=== PATIENT | female | born 1980 | race Caucasian/White ===

== ENCOUNTER 2018-02-06 09:27 | Emergency (ER) | END 2018-02-06 11:49 | disposition home or self-care (01) ==

== ENCOUNTER 2018-07-10 19:33 | Inpatient (IN) | payer OTHER ==
[~2018-07-10] VITALS: Ht 154.9 cm; Wt 69.1 kg
[~2018-07-10 19:33] MED LIST: NITR-58 PO
[2018-07-10] MEDS ORDERED: LIDOCAINE 1% (MPF) 30 ML INJ INJ PRN (20:00)
[2018-07-10] MEDS ORDERED: MISOPROSTOL 200 MCG TAB PR PRN (20:00)
[2018-07-10] MEDS ORDERED: METHYLERGONOVINE 0.2 MG INJ IM PRN (20:00)
[2018-07-10] MEDS ORDERED: BUTORPHANOL 2 MG INJ IV PRN (20:00)
[2018-07-10] MEDS ORDERED: OXYTOCIN 30 UNITS/LR 500 ML IV PRN (20:00)
[2018-07-10] MEDS ORDERED: MINERAL OIL LIGHT 10 ML VIAL TOP PRN (20:00)
[2018-07-10] MEDS ORDERED: OXYTOCIN 30 UNITS/LR 500 ML IV SCH (20:00)
[2018-07-10] MEDS ORDERED: IBUPROFEN 600 MG TAB PO PRN (20:00)
[2018-07-10] MEDS ORDERED: CARBOPROST 250 MCG INJ IM PRN (20:00)
[2018-07-10 20:10] VITALS: Ht 154.9 cm; Wt 69.1 kg
[2018-07-10] MEDS: LACTATED RINGER'S 1,000 ML IV SCH ×2 (20:10→21:32)
--- NOTE | 2018-07-10 21:32 | PREAC ---
Date/Time of Note Date/Time of Note DATE: 07/10/18 TIME: 21:31 Anesthesia Eval and Record Evaluation Time Pre-Procedure Interview DATE: 07/10/18 TIME: 21:31 Age 37 Sex female NPO: 8 hrs Preoperative diagnosis intrauterine Planned procedure labor epidural Past Medical History Past Medical History: Includes : : (5), Para: (2) Surgery & Anesthesia Issues No known issue Meds Anticoagulation: No Beta Katlin within 24 hr: No Reason Beta Katlin not given: Pt. not on B-Katlin Active Scripts Nitrofurantoin Monohyd Macrocr* (Macrobid*) 100 Mg Capsr, 100 MG PO BID for 7 Days, CAP Prov:AIDEN MCCOY MD 02/06/18 Current Medications Lactated Ringer's 1,000 ml @ 125 mls/hr Q8H IV Last administered on 07/10/18at 20:10; Admin Dose 125 MLS/HR; Start 07/10/18 at 19:49 Butorphanol Tartrate (Stadol) 2 mg Q2H PRN IV .PAIN SCALE 6-10; Start 07/10/18 at 20:00 Lidocaine (Xylocaine 1% (Mpf)) 30 ml ONCE PRN INJ .EPISIOTOMY; Start 07/10/18 at 20:00 Oxytocin/Lactated Ringer's 500 ml @ 500 mls/hr ONCE POST IV ; Start 07/10/18 at 20:00 Oxytocin/Lactated Ringer's 500 ml @ 125 mls/hr POST IV ; Start 07/10/18 at 20:00 Ibuprofen (Motrin) 600 mg ONCE PRN PO .PAIN 1-5; Start 07/10/18 at 20:00 Oxytocin/Lactated Ringer's 500 ml @ 0 mls/hr ONCE PRN IV .VAGINAL BLEEDING; Start 07/10/18 at 20:00 Methylergonovine Maleate (Methergine) 0.2 mg ONCE PRN IM .VAGINAL BLEEDING; Start 07/10/18 at 20:00 Carboprost Tromethamine (Hemabate) 250 mcg ONCE PRN IM .VAGINAL BLEEDING; Start 07/10/18 at 20:00 Misoprostol (Cytotec) 1,000 mcg ONCE PRN TX .VAGINAL BLEEDING; Start 07/10/18 at 20:00 Mineral Oil (Muri-Lube) 10 ml ONCE PRN TOP vaginal delivery; Start 07/10/18 at 20:00; Stop 07/11/18 at 19:59 Clindamycin HCl/ Dextrose 50 ml @ 100 mls/hr Q8 IVPB ; Start 07/10/18 at 22:00 Meds reviewed: Yes Allergies Coded Allergies: Penicillins (Verified Allergy, Intermediate, 07/10/18) Allergies Reviewed: Yes Labs/Studies Labs Reviewed: Reviewed by anesthesiologist Result Diagram: 07/10/182009 Laboratory Tests 07/10/18 20:10 Blood Bank Test 07/10/18 20:10 Blood Type O POSITIVE Rh Immune Globulin Candidate NO test: N/A Pre-procedure Exam Airway: Adequate mouth opening, Adequate thyromental dist Mallampati: Mallampati II Teeth: Normal Lung: Normal Heart: Normal ASA Physical Status ASA physical status: 2 Emergency: None Planned Anesthetic Neuraxial: Epidural Planned Pain Management Epidural, Parenteral pain med Pre-operative Attestations Prior to commencing anesthesia and surgery, the patient was re-evaluated, there was verification of: *The patient's identity *The results of appropriate recent lab work and preoperative vital signs *The above evaluation not changing prior to induction *Anesthetic plan, risk benefits, alternative and complications discussed with patient/family; questions answered; patient/family understands, accepts and wishes to proceed. FELICIA JAQUEZ MD July 10, 2018 21:32
[2018-07-10] MEDS ORDERED: FENTAnyl 2MCG/ML-ROPIV 0.2% 100 ML ONE (21:44)
[2018-07-10] MEDS ORDERED: ROPIVACAINE 0.2% 100ML BAG EPI SCH (22:00)
[2018-07-10] MEDS ORDERED: ONDANSETRON 4 MG INJ IV PRN (22:00)
[2018-07-10] MEDS ORDERED: CLINDAMYCIN 900 MG/D5W (PMX) 50 ML IVPB SCH (22:00)
[2018-07-10] MEDS ORDERED: NALOXONE (0.4 MG/ML) INJ IV PRN (22:00)
[2018-07-10] MEDS ORDERED: FENTAnyl 2MCG/ML-ROPIV 0.2% 100 ML BAG EPI SCH (22:00)
[2018-07-10] MEDS ORDERED: DIPHENHYDRAMINE 50 MG INJ IV PRN (22:00)
--- NOTE | 2018-07-10 22:29 | HP ---
Date/Time of Note Date/Time of Note DATE: 07/10/18 TIME: 22:22 OB - History Hx of Present Free Text/Dictation 37y.o A3(sab) here at 38w6d c/o SROM at 1830 which was clear with uc'sq3min apart. VE 3-4780/-2 clear vag pooling GBS pos ,allergic to penicillin ,clindamycin as protocol admitted for expectant management. Chief Complaint: SROM with UC's Estimated Due Date: July 18, 2018 : 5 Para: 2 Spontaneous : 3 Therapeutic : 0 Care: Good Care Ultrasounds: Normal mid trimester US Obstetrical Complications: None Medical Complications: None Past Family/Social History * Past Medical, Surgical, Family and Obstetric Histories reviewed from chart. Blood Type: O+ Rubella: immune RPR/VDRL: Negative GBS Status: Positive HBsAG: Negative OB Admission Exam Physical Exam HEENT: WNL Heart: Rhythm Normal Lungs: Clear, Equal Abdomen: WNL Extremities: Normal Reflexes: Normal Cervical Dilatation: 3cm Effacement: 75% Station: -2 Membranes: Ruptured Amniotic Fluid: Clear Heart Rate: 120's Accelerations: Accelerations Present Decelerations: No Decelerations Varibility: Moderate Contractions on Admission: < 5 Minutes Apart Intensity: Moderate Last 72 hours Lab Results CBC & BMP 07/10/18 20:10 OB Assessment/Plan Reason for admission: rupture of membranes Other Assessment: IUP 38w6d in labor Plan: Expectant Management, Other (clindamycin clindamycin for GBS) DIMA VOGEL MD July 10, 2018 22:29
--- NOTE | 2018-07-10 22:43 | PAC ---
Date/Time of Note Date/Time of Note DATE: 07/10/18 TIME: 22:42 Post-Anesthesia Notes Post-Anesthesia Note Activity: WNL Respiratory function: WNL Cardiovascular function: WNL Mental status: Baseline Pain reasonably controlled: Yes Hydration appropriate: Yes Nausea/Vomiting absent: Yes Comments BP: 110/64 HR: 82 RR: 15 T: 98 SaO2: 99% FELICIA JAQUEZ MD July 10, 2018 22:43
--- NOTE | 2018-07-11 02:48 | LDN ---
Date/Time of Note Date/Time of Note DATE: 07/11/18 TIME: 02:46 Delivery Summary of normal male Weeks of Gestation 38w6d Placenta Delivered: Spontaneously, Intact & Complete Meconium: none Episiotomy: No Perineal laceration: 1 Laceration repair: 000ch gut Anesthesia type: Epidural Estimated blood loss: 100 Sponge & Needle done & correct: Yes All needle counts correct: Yes Any foreign bodies felt in the: No Infant Delivery Information Sex Sex: male Apgars 1 Minute: 8 5 Minute: 9 Suctioning Nose & mouth suctioned at garett: Yes Delee suction performed: Yes Umbilical Cord Umbilical cord with: 3 Vessels Cord presentations: no nuchal cord Cord Blood was obtained: Yes Mother & Baby Disposition Disposition Mom & Baby to Maternity; Good: Yes Mom transferred to: Other Baby to NICU: No () DIMA VOGEL MD July 11, 2018 02:48
[2018-07-11] MEDS: OXYTOCIN 30 UNITS/LR 500 ML IV SCH ×2 (03:28→07:41)
[2018-07-11 05:00] VITALS: BP 118/68; PULSE 88; RESP 17; RESP 18
[2018-07-11] MEDS ORDERED: METHYLERGONOVINE 0.2 MG INJ IM PRN (05:30)
[2018-07-11] MEDS ORDERED: MISOPROSTOL 200 MCG TAB PR PRN (05:30)
[2018-07-11] MEDS ORDERED: WITCH HAZEL/GLYCERIN PAD PR PRN (05:30)
[2018-07-11] MEDS ORDERED: BENZOCAINE 20% 56 ML SPRAY TOP PRN (05:30)
[2018-07-11] MEDS ORDERED: OXYTOCIN 30 UNITS/LR 500 ML IV PRN (05:30)
[2018-07-11] MEDS ORDERED: CARBOPROST 250 MCG INJ IM PRN (05:30)
[2018-07-11] MEDS ORDERED: OXYCODONE/ASPIRIN (4.88/325) TAB PO PRN ×2 (05:30)
[2018-07-11] MEDS ORDERED: ZOLPIDEM 5 MG TAB PO PRN (05:30)
[2018-07-11] MEDS: IBUPROFEN 600 MG TAB PO SCH ×4 (05:57→23:58)
--- NOTE | 2018-07-11 06:00 | TRIAGE ---
OB Triage Datetime Report Generated by CPN: 07/11/2018 05:59 Datetime: 07/11/2018 05:07 Stage of : Datetime: 07/11/2018 03:45 Stage of : Recovery Pain Assessment Pain Scale: 0 Pain Presence: None/Denies Datetime: 07/11/2018 03:30 Stage of : Recovery Pain Assessment Pain Scale: 0 Pain Presence: None/Denies Datetime: 07/11/2018 03:15 Stage of : Recovery Pain Assessment Pain Scale: 0 Pain Presence: None/Denies Datetime: 07/11/2018 03:00 Stage of : Recovery Pain Assessment Pain Scale: 0 Pain Presence: None/Denies Datetime: 07/11/2018 02:45 Stage of : Recovery Temperature Route: Oral Pain Assessment Pain Scale: 0 Pain Presence: None/Denies Datetime: 07/11/2018 00:45 Stage of : Recovery Temperature Route: Oral Pain Assessment Pain Scale: 7 Pain Presence: Constant Pain Type: Burning; Cramping Pain Location: Abdomen; Perineum Pain Goal: 2 Pain Relief Measures: Comfort Measures Datetime: 07/11/2018 00:27 Vaginal Exam Dilatation (cms): 10.0 Effacement (%): 100 Station: 0 Exam By: Suzanna Dennison RN Vaginal Bleeding: Normal Show Cervix, Consistency: Soft Cervix, Position: Anterior Presentation 'A': Cephalic Datetime: 07/10/2018 22:19 Vaginal Exam Dilatation (cms): 7.0 Effacement (%): 90 Station: -1 Exam By: Suzanna Dennison RN Vaginal Bleeding: Normal Show Cervix, Consistency: Soft Cervix, Position: Anterior Presentation 'A': Cephalic Datetime: 07/10/2018 22:09 Monitor Mode: External Monitor Mode: External US Datetime: 07/10/2018 20:35 Time of Arrival: 07/10/2018 20:35 EGA: 38.6 Arrived By: Wheelchair Arrived From: Home Chief Complaint: SROM AT 1830 UC'S Movement: Present Contractions: Regular Time Contractions Began: 07/10/2018 18:30 Contractions: 3 MIS Rupture of Membranes: Ruptured Vaginal Bleeding: Normal Show Vaginal Discharge: Present Recent Sexual Intercouse: Denies Abdominal Trauma: Not Applicable Patient Complaints: Contractions; Other Time Provider Notified: 07/10/2018 20:35 Provider Notified: DR. VOGEL Initial Plan: EFM, SVE, NITRIZINE Datetime: 07/10/2018 20:25 Stage of : OB Triage Labor Evaluation Frequency: 2-3.5 Monitor Mode: External Duration (sec)2399: 60-100 Quality: Strong Pattern: Normal: <= 5 Contractions in 10 Minutes Resting Tone [place]: Relaxed Heart Rate FHR Baseline Rate: 135 Monitor Mode: External US Variability: Moderate 6-25 bpm Accelerations: 15X15 Decelerations: None Category: Category I Datetime: 07/10/2018 19:40 Stage of : OB Triage Maternal Assessment Level of Consciousness: Fully Conscious DTR's/Clonus: DTRs 2+; No Clonus Headache: Denies Blurred Vision: No Respiratory Effort: Unlabored; Regular Rhythm; Equal Expansion Breath Sounds, Left: Clear and Equal Breath Sounds, Right: Clear and Equal Nausea/Vomiting: Denies RUQ Epigastric Pain: Denies Lower Extremities Edema: None Degree: None Upper Extremities Edema: None Degree: None Facial Edema: None Temperature Route: Oral Fall Risk Assessment History of Falling: (0) No Secondary Diagnosis: (0) No Ambulatory Aid: (0) Bedrest/Nurse Assist IV Therapy: (0) No Gait: (0) Normal/Bedrest/Immobile Mental Status: (0) Oriented to Own Ability Fall Score: 0 Fall Risk Score Definition: No Risk: No action required Pain Assessment Pain Scale: 4 Pain Presence: Intermittent Pain Type: Contraction Pain Location: Abdomen Datetime: 07/10/2018 19:30 Vaginal Exam Dilatation (cms): 3.5 Effacement (%): 80 Station: -2 Exam By: David ST Membrane Status: Ruptured Membranes Ruptured Date/Time: 07/10/2018 18:30 Membranes Rupture Method: Spontaneous Amniotic Fluid Color: Clear Amniotic Fluid Amount: Large Amniotic Fluid Odor: Normal Vaginal Bleeding: Normal Show Pool: Positive Nitrazine: Positive Cervix, Consistency: Soft Cervix, Position: Midposition
[2018-07-11 07:30] VITALS: BP 110/53; PULSE 93; RESP 18
[2018-07-11] MEDS: LANOLIN HPA 1 PKT TOP PRN (07:40)
[2018-07-11] MEDS: SENNA/DOCUSATE NA (8.6MG/50MG) TAB PO SCH ×2 (09:59→23:58)
[2018-07-11 12:00] VITALS: BP 98/57; PULSE 76; RESP 16
[2018-07-11 16:00] VITALS: BP 94/52; PULSE 75; RESP 18
[2018-07-11 19:45] VITALS: BP 110/57; PULSE 73; RESP 18
[2018-07-12 03:50] VITALS: BP 98/48; PULSE 69; RESP 18
[2018-07-12] MEDS: IBUPROFEN 600 MG TAB PO SCH ×4 (05:53→23:47)
[2018-07-12 08:20] VITALS: BP 93/55; PULSE 71; RESP 19
[2018-07-12] MEDS: SENNA/DOCUSATE NA (8.6MG/50MG) TAB PO SCH ×2 (08:23→21:56)
[2018-07-12] MEDS: LANOLIN HPA 1 PKT TOP PRN (08:23)
[2018-07-12 15:39] VITALS: BP 105/65; PULSE 80; RESP 18
[2018-07-12 20:30] VITALS: BP 105/67; PULSE 77; RESP 17
--- NOTE | 2018-07-12 22:10 | PN ---
Date/Time of Note Date/Time of Note DATE: 07/12/18 TIME: 22:06 OB Subjective Subjective Subjective PPD# 1 Patient is doing well. She denies nausea, vomiting, shortness of breath, chest pain, headache. She has been ambulating without difficulty, tolerating regular diet. Pain is well controlled on current medications OB Objective Objective Objective Vital Signs Date Temp Pulse Resp B/P (MAP) Pulse Ox O2 O2 Flow FiO2 Time Delivery Rate 07/12/18 99.0 80 18 105/65 Room Air 15:39 (78) General: AAO X 3, comfortable, NAD, appropriate mood and affect. ABD: +BS. Soft, non-tender. Uterus 2 cm below umbilicus Flank: No CVA tenderness (B/L) LE: Mild edema. No clubbing, cyanosis, thigh or calf tenderness (B/L). Homans 'sign is negative OB Assessment/Plan Other plan: 37 y/o s/p normal vaginal delivery at 38 6/7 wks. PPD#1 - AF, VSS - Contraception methods with R/B/A/FR discussed - Continue care - Discharge home tomorrow - Rx and instruction given - Follow up in 2 and 6 weeks at clinic MAXIME CONNELLY July 12, 2018 22:10
[2018-07-13 03:33] VITALS: BP 98/62; PULSE 61; RESP 17
[2018-07-13] MEDS: IBUPROFEN 600 MG TAB PO SCH ×2 (05:47→11:50)
[2018-07-13 08:00] VITALS: BP 101/64; PULSE 75; RESP 16
[2018-07-13] MEDS: SENNA/DOCUSATE NA (8.6MG/50MG) TAB PO SCH (09:00)
[2018-07-13] MEDS ORDERED: DIPHTH/TET/ACEL PERTUSS (ADULT) 0.5 ML VIAL IM* ONE (09:00)
--- NOTE | 2018-07-13 16:05 | DS ---
Date/Time of Note Date/Time of Note DATE: 07/13/18 TIME: 16:03 Obstetrical Discharge Record Final Diagnosis Final Diagnosis: Term delivered Other Final Diagnosis 37 y/o s/p normal vaginal delivery at 38 6/7 wks. PPD#2. course was unremarkable. She is ambulating and tolerating regular diet. She is voiding without difficulty. Pain is controlled on current medication. - AF, VSS - Contraception methods with R/B/A/FR discussed - Continue care - Discharge home - Rx and instruction given - Follow up in 2 and 6 weeks at clinic Condition on Discharge Physical Assessment Last Vitals: Vital Signs Date Temp Pulse Resp B/P (MAP) Pulse Ox O2 O2 Flow FiO2 Time Delivery Rate 07/13/18 97.7 75 16 101/64 Room Air 08:00 (76) Voiding: Yes Bowel Movement: Yes Breast: Soft, non-tender Calf Tenderness: No Patient Condition: Stable MAXIME CONNELLY July 13, 2018 16:04
--- NOTE | 2018-07-14 16:26 | DELSUM ---
Delivery Summary A-C Datetime Report Generated by CPN: 07/14/2018 16:26 DELIVERY PERSONNEL Drafter Electromechanical: Dennison, Belkys MATERNAL INFORMATION Delivery Anesthesia: Epidural Medications in Delivery: Pitocin Delivery QBL (ml): 100 Placenta Cultured: No Maternal Complications: None RN Comments: Pt is GBS+ LABOR SUMMARY EDC: 07/18/2018 00:00 No. Babies in Womb: 1 Attempted: No Labor Anesthesia: Epidural LABOR INFORMATION Reason for Induction: Not Applicable Onset of Labor: 07/10/2018 18:30 Complete Dilatation: 07/11/2018 00:27 Cervical Ripening Agents: Other Other Ripening Agents: N/A Oxytocin: N/A Group B Beta Strep: Positive Antibiotics # of Doses: 1 Antibiotics Time of Last Dose: 07/10/2018 22:41 Steroids Given: None Reason Steroids Not Administered: Not Applicable MEMBRANES Membranes Rupture Method: Spontaneous Rupture of Membranes: 07/10/2018 18:30 Length of Rupture (hr): 7.95 Amniotic Fluid Color: Clear Amniotic Fluid Amount: Large Amniotic Fluid Odor: Normal STAGES OF LABOR Stage 1 hr: 5 Stage 1 min: 57 Stage 2 hr: 2 Stage 2 min: 0 Stage 3 hr: 0 Stage 3 min: 3 Total Time in Labor hr: 8 Total Time in Labor min: 0 VAGINAL DELIVERY Episiotomy: None Laceration Extension: First Degree Laceration Type: Perineal Laceration Repair: Yes Initial Vag Sponge Count: 10 Final Vag Sponge Count: 10 Initial Vag Sharps Count: 1 Final Vag Sharps Count: 2 Sponge Count Correct: Yes Sharps Count Correct: Yes Count Comment: 3-0 Chromic SH added BABY A INFORMATION Delivery Date/Time: 07/11/2018 02:27 Method of Delivery: Vaginal Born in Route : No : N/A Forceps: N/A Vacuum Extraction: N/A Shoulder Dystocia : N/A SHOULDER DYSTOCIA BABY A Delivery Date/Time: 07/11/2018 02:27 PRESENTATION/POSITION BABY A Presentation: Cephalic Cephalic Presentation: Vertex Vertex Position: Left Occipital Anterior Breech Presentation: N/A PLACENTA INFORMATION BABY A Placenta Delivery Time : 07/11/2018 02:30 Placenta Method of Delivery: Expressed Placenta Status: Delivered SCORES BABY A Heart Rate 1 min: >100 bpm Resp Effort 1 min: Good Cry Reflex Irritability 1 min: Cough/Sneeze/Pulls Away Muscle Tone 1 min: Active Motion Color 1 min: Blue/Pale Resuscitation Effort 1 min: Tactile Stimulation SCORE 1 MIN: 8 Heart Rate 5 min: >100 bpm Resp Effort 5 min: Good Cry Reflex Irritability 5 min: Cough/Sneeze/Pulls Away Muscle Tone 5 min: Active Motion Color 5 min: Body [place], Extremit Blue Resuscitation Effort 5 min: PPV/NCPAP SCORE 5 MIN: 9 INFANT INFORMATION BABY A Gestational Age at Delivery: 39.0 Gestational Status: Full Term- 39- 40.6 Weeks Outcome : Liveborn Condition : Fair Infant Sex: Male IDENTIFICATION/MEDS BABY A ID Band Number: [id number] Sensor Applied: No Sensor Number: [id number] Vitamin K Given : Not Given Erythromycin Given: Not Given WEIGHT/LENGTH BABY A Infant Birthweight (gm): 3175 Weight (lb): 7 Weight (oz): 0 Length (in): 19.00 Length (cm): 48.26 CORD INFORMATION BABY A No. Cord Vessels: 3 Nuchal Cord : N/A Suction: Mouth; Nose
== END 2018-07-13 16:25 | disposition home or self-care (01) | DRG 807 ==
LOC: OBT 19:33 → L-D 19:36 → OBT 20:00 → PP1 07-11 04:49
PROVIDERS: ADMIT Obstetrics & Gynecology; ATTEND Obstetrics & Gynecology
PROC: 10E0XZZ Delivery of Products of Conception, External Approach (ICD-10-PCS; principal; 2018-07-11)
PROC: 0HQ9XZZ Repair Perineum Skin, External Approach (ICD-10-PCS; 2018-07-11)
DX: O70.0 First degree perineal laceration during delivery (principal); Z37.0 Single live birth; Z3A.38 38 weeks gestation of pregnancy
CPT/HCPCS: 62322; 85025; 85610; 85730; 86592; 86850; 86900; 86901; 87340; G0463; J2590; J3010; J7120